=== PATIENT | male | born 1960 | race Caucasian/White ===

== ENCOUNTER 2021-06-04 17:37 | Emergency (ER) | payer OTHER ==
[2021-06-04 17:45] VITALS: BMI 28.3
[2021-06-04] MEDS ORDERED: BACITRACIN 0.9 GM PACKET ONE (19:45)
[2021-06-04] MEDS ORDERED: FOLIC ACID INJECTION - 1 MG, THIAMINE HCL 100 MG, MULTIVIT INJECTION ADULT 10 ML in SOD... IVPB ONE (19:48)
[2021-06-04 20:54] LABS: BASO % 0.3 % (0-2.0); EOS % 0.8 % (0-4.5); HEMOGLOBIN 13.8 GM/dL (11.7-16.9); LYMPH % 18.9 % (8-40); MCH 33.3 pg (25.7-33.7); MCHC 35.2 g/dl (32.0-35.9); MEAN CELL VOLUME 94.6 fl (80-96); MEAN PLT VOLUME 8.5 fl (7.5-11.1); MONO % 2.9 % (3.8-10.2); NEUT % 77.1 % (42.8-82.8); PLATELET COUNT 156 10^3/uL (134-434); RBC 4.13 M/mm3 (4.00-5.60); RDW 12.4 % (11.9-15.9); WHITE BLOOD COUNT 8.4 K/mm3 (4.0-10.0)
[2021-06-04 21:16] LABS: ALBUMIN 3.5 g/dl (3.4-5.0); CALCIUM 8.3 mg/dL (8.5-10.1)
[2021-06-04 21:17] LABS: BLOOD UREA NITROGEN 13.6 mg/dL (7-18); MAGNESIUM 2.1 mg/dL (1.8-2.4)
[2021-06-04 21:20] LABS: CREATININE 1.2 mg/dL (0.55-1.3); PHOSPHOROUS 3.9 mg/dL (2.5-4.9)
[2021-06-04 21:21] LABS: BILIRUBIN,TOTAL 0.2 mg/dL (0.2-1); TOT PROT 6.7 g/dl (6.4-8.2)
[2021-06-04] MEDS ORDERED: SODIUM CHLORIDE 0.9% 500 ML INFUS.BAG IV ONE (21:26)
[2021-06-05] MEDS ORDERED: LISINOPRIL 20 MG TABLET PO ONE (06:16)
[2021-06-05] MEDS ORDERED: LISINOPRIL 20 MG TABLET ONE (06:28)
[2021-06-05 08:20] VITALS: BP 167/92; PULSE 82; TEMP 98.1
== END 2021-06-05 08:15 | disposition home or self-care (01) ==
LOC: JER 17:37
PROC: 3E033GC Introduction of Other Therapeutic Substance into Peripheral Vein, Percutaneous Approach (ICD-10-PCS; principal; 2021-06-04)
DX: F10.10 Alcohol abuse, uncomplicated (principal)
CPT/HCPCS: 36415; 70450-TC; 72125-TC; 80053; 83735; 84100; 85025; 99285-25

== ENCOUNTER 2021-06-05 09:40 | Inpatient (IN) | payer OTHER ==
[2021-06-05 11:22] VITALS: BMI 28.3
[2021-06-05] MEDS ORDERED: METHOCARBAMOL 500 MG TABLET PO PRN (11:42)
[2021-06-05] MEDS ORDERED: diazePAM 5 MG TABLET PO PRN (11:42)
[2021-06-05] MEDS ORDERED: MAGNESIUM CITRATE 300 ML BOTTLE PO PRN (11:42)
[2021-06-05] MEDS ORDERED: ONDANSETRON *ODT* 4 MG TABLET SL PRN (11:42)
[2021-06-05] MEDS ORDERED: IBUPROFEN 400 MG TABLET (FP) PO PRN (11:42)
[2021-06-05] MEDS ORDERED: MAG HYDROX/AL HYDROX/SIMETH 30 ML UNIT-DOSE CUP PO PRN (11:42)
[2021-06-05] MEDS ORDERED: MAGNESIUM HYDROX 2400MG/30ML ORAL SUSPENSION 30 ML CUP PO PRN (11:42)
[2021-06-05] MEDS ORDERED: MENTHOL/PHENOL 1 EACH UD MM PRN (11:42)
[2021-06-05] MEDS ORDERED: BISMUTH SUBSALICYLATE 524 MG/30 ML PO PRN (11:42)
[2021-06-05] MEDS ORDERED: ACETAMINOPHEN 325 MG TABLET (FP) PO PRN ×2 (11:42)
[2021-06-05] MEDS ORDERED: INSULIN (NOVOLOG) ASPART 100 UNITS/ML 10ML VIAL SQ ONE (13:52)
[2021-06-05] MEDS: LISINOPRIL 20 MG TABLET PO SCH (15:21)
[2021-06-05] MEDS: hydrOXYzine PAMOATE 25 MG CAPSULE (FP) PO SCH ×3 (15:21→22:02)
[2021-06-05] MEDS ORDERED: INSULIN SLIDING SCALE (NOVOLOG) 1 VIAL SQ ONE (18:09)
[2021-06-05] MEDS: metFORMIN HCL 500 MG TABLET (FP) PO SCH (18:51)
[2021-06-05] MEDS: GEMFIBROZIL 600 MG TABLET (FP) PO SCH (18:51)
[2021-06-05] MEDS: diazePAM 5 MG TABLET PO SCH ×2 (18:52→22:03)
[2021-06-05] MEDS: INSULIN (NOVOLOG) ASPART 100 UNITS/ML 10ML VIAL SQ SCH ×2 (19:02→22:05)
[2021-06-05] MEDS: risperiDONE 0.5 MG TABLET PO SCH (22:02)
[2021-06-05] MEDS: QUEtiapine FUMARATE 300 MG TABLET PO SCH (22:02)
[2021-06-05] MEDS: DONEPEZIL HCL 5 MG TABLET (FP) PO SCH (22:02)
[2021-06-05] MEDS: THIAMINE HCL 100 MG TABLET (FP) PO SCH (22:02)
[2021-06-05] MEDS: traZODone HCL 100 MG TABLET (FP) PO SCH (22:02)
[2021-06-05] MEDS: MELATONIN 5 MG TABLETS PO SCH (22:02)
[2021-06-06] MEDS: hydrOXYzine PAMOATE 25 MG CAPSULE (FP) PO SCH ×5 (05:39→22:08)
[2021-06-06] MEDS: diazePAM 5 MG TABLET PO SCH ×4 (05:42→22:06)
[2021-06-06] MEDS: metFORMIN HCL 500 MG TABLET (FP) PO SCH ×2 (07:26→17:12)
[2021-06-06] MEDS: GEMFIBROZIL 600 MG TABLET (FP) PO SCH ×2 (07:27→17:13)
[2021-06-06] MEDS: INSULIN (NOVOLOG) ASPART 100 UNITS/ML 10ML VIAL SQ SCH ×4 (07:27→22:08)
[2021-06-06] MEDS: glipiZIDE 5 MG TABLET (FP) PO SCH (07:27)
[2021-06-06] MEDS: LISINOPRIL 20 MG TABLET PO SCH (10:12)
[2021-06-06] MEDS: ESCITALOPRAM OXALATE 20 MG TABLET PO SCH (10:12)
[2021-06-06] MEDS: PRENATAL VITAMINS W/ FOLIC ACID TABLET (FP) PO SCH (10:13)
[2021-06-06 11:13] LABS: HEMATOCRIT 40.3 % (35.4-49); HEMOGLOBIN 14.2 GM/dL (11.7-16.9); MCHC 35.2 g/dl (32.0-35.9); MEAN CELL VOLUME 93.9 fl (80-96); MEAN PLT VOLUME 8.9 fl (7.5-11.1); PLATELET COUNT 136 10^3/uL (134-434); RBC 4.29 M/mm3 (4.00-5.60); RDW 12.5 % (11.9-15.9); WHITE BLOOD COUNT 4.3 K/mm3 (4.0-10.0)
[2021-06-06 11:33] LABS: ALBUMIN 3.3 g/dl (3.4-5.0); BLOOD UREA NITROGEN 12.3 mg/dL (7-18); CALCIUM 8.5 mg/dL (8.5-10.1)
[2021-06-06 11:36] LABS: CREATININE 0.8 mg/dL (0.55-1.3)
[2021-06-06 11:38] LABS: BILIRUBIN,TOTAL 0.6 mg/dL (0.2-1); TOT PROT 6.6 g/dl (6.4-8.2)
[2021-06-06] MEDS ORDERED: INSULIN SLIDING SCALE (NOVOLOG) 1 VIAL SQ ONE ×3 (11:59→21:44)
[2021-06-06] MEDS: traZODone HCL 100 MG TABLET (FP) PO SCH (22:05)
[2021-06-06] MEDS: QUEtiapine FUMARATE 300 MG TABLET PO SCH (22:05)
[2021-06-06] MEDS: DONEPEZIL HCL 5 MG TABLET (FP) PO SCH (22:05)
[2021-06-06] MEDS: THIAMINE HCL 100 MG TABLET (FP) PO SCH (22:05)
[2021-06-06] MEDS: risperiDONE 0.5 MG TABLET PO SCH (22:05)
[2021-06-06] MEDS: MELATONIN 5 MG TABLETS PO SCH (22:05)
[2021-06-07] MEDS: diazePAM 5 MG TABLET PO SCH ×3 (06:09→22:13)
[2021-06-07] MEDS: glipiZIDE 5 MG TABLET (FP) PO SCH (06:10)
[2021-06-07] MEDS: GEMFIBROZIL 600 MG TABLET (FP) PO SCH ×2 (06:10→17:39)
[2021-06-07] MEDS: metFORMIN HCL 500 MG TABLET (FP) PO SCH ×2 (06:10→17:39)
[2021-06-07] MEDS: hydrOXYzine PAMOATE 25 MG CAPSULE (FP) PO SCH ×5 (06:10→22:17)
[2021-06-07] MEDS ORDERED: INSULIN SLIDING SCALE (NOVOLOG) 1 VIAL SQ ONE ×4 (06:48→23:32)
[2021-06-07] MEDS: INSULIN (NOVOLOG) ASPART 100 UNITS/ML 10ML VIAL SQ SCH ×4 (06:48→22:16)
[2021-06-07] MEDS: PRENATAL VITAMINS W/ FOLIC ACID TABLET (FP) PO SCH (11:19)
[2021-06-07] MEDS: ESCITALOPRAM OXALATE 20 MG TABLET PO SCH (11:19)
[2021-06-07] MEDS: LISINOPRIL 20 MG TABLET PO SCH (11:21)
[2021-06-07] MEDS: traZODone HCL 100 MG TABLET (FP) PO SCH (22:12)
[2021-06-07] MEDS: DONEPEZIL HCL 5 MG TABLET (FP) PO SCH (22:12)
[2021-06-07] MEDS: risperiDONE 0.5 MG TABLET PO SCH (22:12)
[2021-06-07] MEDS: MELATONIN 5 MG TABLETS PO SCH (22:13)
[2021-06-07] MEDS: QUEtiapine FUMARATE 300 MG TABLET PO SCH (22:13)
[2021-06-07] MEDS: THIAMINE HCL 100 MG TABLET (FP) PO SCH (22:14)
[2021-06-08] MEDS ORDERED: INSULIN SLIDING SCALE (NOVOLOG) 1 VIAL SQ ONE ×3 (03:23→11:20)
[2021-06-08] MEDS: metFORMIN HCL 500 MG TABLET (FP) PO SCH ×2 (06:24→17:39)
[2021-06-08] MEDS: GEMFIBROZIL 600 MG TABLET (FP) PO SCH ×2 (06:24→17:39)
[2021-06-08] MEDS: hydrOXYzine PAMOATE 25 MG CAPSULE (FP) PO SCH ×5 (06:24→22:06)
[2021-06-08] MEDS: glipiZIDE 5 MG TABLET (FP) PO SCH (06:24)
[2021-06-08] MEDS: diazePAM 5 MG TABLET PO SCH ×2 (06:24→17:50)
[2021-06-08] MEDS: INSULIN (NOVOLOG) ASPART 100 UNITS/ML 10ML VIAL SQ SCH ×4 (06:27→23:26)
[2021-06-08] MEDS: LISINOPRIL 20 MG TABLET PO SCH (10:11)
[2021-06-08] MEDS: PRENATAL VITAMINS W/ FOLIC ACID TABLET (FP) PO SCH (10:11)
[2021-06-08] MEDS: ESCITALOPRAM OXALATE 20 MG TABLET PO SCH (10:12)
[2021-06-08] MEDS ORDERED: NICOTINE 10 MG CARTRIDGE (INHALER) IH PRN (13:26)
[2021-06-08] MEDS: traZODone HCL 100 MG TABLET (FP) PO SCH (22:06)
[2021-06-08] MEDS: THIAMINE HCL 100 MG TABLET (FP) PO SCH (22:06)
[2021-06-08] MEDS: MELATONIN 5 MG TABLETS PO SCH (22:06)
[2021-06-08] MEDS: QUEtiapine FUMARATE 300 MG TABLET PO SCH (22:06)
[2021-06-08] MEDS: risperiDONE 0.5 MG TABLET PO SCH (22:07)
[2021-06-08] MEDS: DONEPEZIL HCL 5 MG TABLET (FP) PO SCH (23:26)
[2021-06-09] MEDS ORDERED: diazePAM 5 MG TABLET PO ONE (06:00)
[2021-06-09] MEDS: GEMFIBROZIL 600 MG TABLET (FP) PO SCH (06:58)
[2021-06-09] MEDS: glipiZIDE 5 MG TABLET (FP) PO SCH (06:58)
[2021-06-09] MEDS: hydrOXYzine PAMOATE 25 MG CAPSULE (FP) PO SCH ×3 (06:58→14:24)
[2021-06-09] MEDS: metFORMIN HCL 500 MG TABLET (FP) PO SCH (06:58)
[2021-06-09] MEDS: INSULIN (NOVOLOG) ASPART 100 UNITS/ML 10ML VIAL SQ SCH ×2 (07:04→12:10)
[2021-06-09] MEDS ORDERED: INSULIN SLIDING SCALE (NOVOLOG) 1 VIAL SQ ONE ×2 (07:07→12:10)
[2021-06-09 08:21] VITALS: TEMP 96.9
[2021-06-09 09:34] VITALS: BP 115/74; PULSE 93
[2021-06-09] MEDS: LISINOPRIL 20 MG TABLET PO SCH (10:32)
[2021-06-09] MEDS: ESCITALOPRAM OXALATE 20 MG TABLET PO SCH (10:32)
[2021-06-09] MEDS: PRENATAL VITAMINS W/ FOLIC ACID TABLET (FP) PO SCH (10:32)
== END 2021-06-09 15:25 | disposition other institution (70) | DRG 897 ==
LOC: YASAS 09:40 → Y3N 14:33
PROVIDERS: ADMIT Allergy & Immunology; ATTEND Allergy & Immunology
PROC: HZ2ZZZZ Detoxification Services for Substance Abuse Treatment (ICD-10-PCS; principal; 2021-06-05)
DX: F10.230 Alcohol dependence with withdrawal, uncomplicated (principal); F39 Unspecified mood [affective] disorder; F41.8 Other specified anxiety disorders; F32.9 Major depressive disorder, single episode, unspecified; F03.90 Unspecified dementia, unspecified severity, without behavioral disturbance, psychotic disturbance, mood disturbance, and anxiety; I10 Essential (primary) hypertension; E78.5 Hyperlipidemia, unspecified; E11.9 Type 2 diabetes mellitus without complications; Z79.84 Long term (current) use of oral hypoglycemic drugs; Z56.0 Unemployment, unspecified; Z59.0 Homelessness
CPT/HCPCS: 36415; 80053; 82962; 85027; 86780; C9803; U0003; U0005

== ENCOUNTER 2021-06-09 15:28 | Inpatient (IN) | payer OTHER ==
[2021-06-09] MEDS ORDERED: MAGNESIUM HYDROX 2400MG/30ML ORAL SUSPENSION 30 ML CUP PO PRN (19:45)
[2021-06-09] MEDS ORDERED: ACETAMINOPHEN 325 MG TABLET (FP) PO PRN (19:45)
[2021-06-09] MEDS ORDERED: P-EPHED 60MG/TRIPROLIDI 2.5MG TABLET PO PRN (19:45)
[2021-06-09] MEDS ORDERED: IBUPROFEN 400 MG TABLET (FP) PO PRN (19:45)
[2021-06-09] MEDS ORDERED: NICOTINE POLACRILEX 2 MG GUM BUC PRN (19:45)
[2021-06-09] MEDS ORDERED: MENTHOL/PHENOL 1 EACH UD MM PRN (19:45)
[2021-06-09] MEDS ORDERED: LOPERAMIDE HCL 2 MG CAPSULE PO PRN (19:45)
[2021-06-09] MEDS ORDERED: MAG HYDROX/AL HYDROX/SIMETH 30 ML UNIT-DOSE CUP PO PRN (19:45)
[2021-06-09] MEDS ORDERED: guaiFENesin 200 MG/10 ML 10 ML UNIT-DOSE CUPS PO PRN (19:45)
[2021-06-09] MEDS ORDERED: MAGNESIUM CITRATE 300 ML BOTTLE PO PRN (19:45)
[2021-06-09] MEDS ORDERED: NICOTINE 10 MG CARTRIDGE (INHALER) IH PRN (19:45)
[2021-06-09] MEDS: hydrOXYzine PAMOATE 25 MG CAPSULE (FP) PO SCH (21:55)
[2021-06-09] MEDS ORDERED: MELATONIN 5 MG TABLETS PO SCH (22:00)
[2021-06-09] MEDS ORDERED: THIAMINE HCL 100 MG TABLET (FP) PO SCH (22:00)
[2021-06-09] MEDS ORDERED: QUEtiapine FUMARATE 300 MG TABLET PO SCH (22:00)
[2021-06-09] MEDS ORDERED: risperiDONE 0.5 MG TABLET PO SCH (22:00)
[2021-06-09] MEDS ORDERED: traZODone HCL 100 MG TABLET (FP) PO SCH (22:00)
[2021-06-09] MEDS ORDERED: METOPROLOL TARTRATE 25 MG TABLET (FP) PO SCH (22:00)
[2021-06-09 23:26] VITALS: TEMP 97.1
[2021-06-10] MEDS: metFORMIN HCL 500 MG TABLET (FP) PO SCH ×2 (06:34→16:52)
[2021-06-10] MEDS: GEMFIBROZIL 600 MG TABLET (FP) PO SCH ×2 (06:34→16:52)
[2021-06-10 06:35] VITALS: BP 136/79; PULSE 72
[2021-06-10] MEDS: hydrOXYzine PAMOATE 25 MG CAPSULE (FP) PO SCH ×4 (06:42→18:43)
[2021-06-10] MEDS ORDERED: glipiZIDE 5 MG TABLET (FP) PO SCH (07:00)
[2021-06-10] MEDS ORDERED: PRENATAL VITAMINS W/ FOLIC ACID TABLET (FP) PO SCH (10:00)
[2021-06-10] MEDS ORDERED: SOLIFENACIN SUCCINATE 5 MG TAB PO SCH (10:00)
[2021-06-10] MEDS ORDERED: NICOTINE 7 MG/24 HOURS TOPICAL PATCH TD SCH (10:00)
[2021-06-10] MEDS ORDERED: LISINOPRIL 20 MG TABLET PO SCH (10:00)
[2021-06-10] MEDS ORDERED: PT OWN MED DRAWER 7, Y5N ONE ×2 (15:53→16:52)
== END 2021-06-10 18:38 | disposition left against medical advice (07) | DRG 894 ==
LOC: YASAS 15:28 → Y5N 15:29
PROVIDERS: ADMIT Allergy & Immunology; ATTEND Allergy & Immunology
PROC: HZ42ZZZ Group Counseling for Substance Abuse Treatment, Cognitive-Behavioral (ICD-10-PCS; principal; 2021-06-09)
DX: F10.20 Alcohol dependence, uncomplicated (principal); F41.9 Anxiety disorder, unspecified; F32.9 Major depressive disorder, single episode, unspecified; F03.90 Unspecified dementia, unspecified severity, without behavioral disturbance, psychotic disturbance, mood disturbance, and anxiety; E78.5 Hyperlipidemia, unspecified; I10 Essential (primary) hypertension; E11.9 Type 2 diabetes mellitus without complications; Z79.84 Long term (current) use of oral hypoglycemic drugs
CPT/HCPCS: 82962

== ENCOUNTER 2021-11-01 12:00 | Emergency (ER) | payer OTHER ==
[2021-11-01 12:14] VITALS: TEMP 99.1; BMI 30.2
[2021-11-01] MEDS ORDERED: METOPROLOL TARTRATE 25 MG TABLET (FP) PO ONE (13:04)
[2021-11-01] MEDS ORDERED: LISINOPRIL 20 MG TABLET PO ONE (13:04)
[2021-11-01] MEDS ORDERED: ACETAMINOPHEN 1000 MG/100 ML BAG IVPB ONE (13:05)
[2021-11-01] MEDS ORDERED: LISINOPRIL 20 MG TABLET ONE (13:45)
[2021-11-01] MEDS ORDERED: ACETAMINOPHEN INJECTION 100 ML IVPB ONE (13:45)
[2021-11-01] MEDS ORDERED: METOPROLOL TARTRATE 25 MG TABLET (FP) ONE (13:45)
[2021-11-01 14:28] LABS: BASO % 0.8 % (0-2.0); EOS % 1.3 % (0-4.5); HEMATOCRIT 45.8 % (35.4-49); HEMOGLOBIN 15.7 GM/dL (11.7-16.9); MCH 31.2 pg (25.7-33.7); MCHC 34.2 g/dl (32.0-35.9); MEAN CELL VOLUME 91.2 fl (80-96); MEAN PLT VOLUME 8.2 fl (7.5-11.1); MONO % 8.5 % (3.8-10.2); NEUT % 67.4 % (42.8-82.8); PLATELET COUNT 240 10^3/uL (134-434); RBC 5.02 M/mm3 (4.00-5.60); RDW 12.4 % (11.9-15.9); WHITE BLOOD COUNT 8.5 K/mm3 (4.0-10.0)
[2021-11-01 14:59] LABS: CALCIUM 9.4 mg/dL (8.5-10.1)
[2021-11-01 15:00] LABS: ALBUMIN 4.5 g/dl (3.4-5.0); MAGNESIUM 2.6 mg/dL (1.8-2.4)
[2021-11-01 15:03] LABS: CREATININE 0.9 mg/dL (0.55-1.3); PHOSPHOROUS 3.5 mg/dL (2.5-4.9)
[2021-11-01 15:04] LABS: BILIRUBIN,TOTAL 1.1 mg/dL (0.2-1)
[2021-11-01 15:05] LABS: TOT PROT 8.7 g/dl (6.4-8.2)
[2021-11-01 17:28] VITALS: BP 123/81; PULSE 83
== END 2021-11-01 17:46 | disposition home or self-care (01) ==
LOC: JER 12:00
PROC: 3E0333Z Introduction of Anti-inflammatory into Peripheral Vein, Percutaneous Approach (ICD-10-PCS; principal; 2021-11-01)
DX: F10.10 Alcohol abuse, uncomplicated (principal)
CPT/HCPCS: 36415; 70450-TC; 80053; 83735; 84100; 85025; 93005; 93010; 99285-25; C9803; J0131; U0003; U0005

== ENCOUNTER 2021-11-01 18:23 | Inpatient (IN) | payer OTHER ==
[2021-11-01] MEDS ORDERED: IBUPROFEN 400 MG TABLET (FP) PO PRN (23:29)
[2021-11-01] MEDS ORDERED: MENTHOL/PHENOL 1 EACH UD MM PRN (23:29)
[2021-11-01] MEDS ORDERED: MAGNESIUM CITRATE 300 ML BOTTLE PO PRN (23:29)
[2021-11-01] MEDS ORDERED: ONDANSETRON *ODT* 4 MG TABLET SL PRN (23:29)
[2021-11-01] MEDS ORDERED: MAG HYDROX/AL HYDROX/SIMETH 30 ML UNIT-DOSE CUP PO PRN (23:29)
[2021-11-01] MEDS ORDERED: METHOCARBAMOL 500 MG TABLET PO PRN (23:29)
[2021-11-01] MEDS ORDERED: BISMUTH SUBSALICYLATE 524 MG/30 ML PO PRN (23:29)
[2021-11-01] MEDS ORDERED: ACETAMINOPHEN 325 MG TABLET (FP) PO PRN ×2 (23:29)
[2021-11-01] MEDS ORDERED: MAGNESIUM HYDROX 2400MG/30ML ORAL SUSPENSION 30 ML CUP PO PRN (23:29)
[2021-11-01] MEDS ORDERED: NICOTINE 10 MG CARTRIDGE (INHALER) IH PRN (23:29)
[2021-11-01 23:44] VITALS: BMI 28.3
[2021-11-02] MEDS ORDERED: hydrOXYzine PAMOATE 25 MG CAPSULE (FP) PO SCH (06:00)
[2021-11-02] MEDS: PRENATAL VITAMINS W/ FOLIC ACID TABLET (FP) PO SCH (10:34)
[2021-11-02] MEDS: ESCITALOPRAM OXALATE 20 MG TABLET PO SCH (10:36)
[2021-11-02 11:25] LABS: HEMATOCRIT 42.8 % (35.4-49); HEMOGLOBIN 14.3 GM/dL (11.7-16.9); MCH 31.1 pg (25.7-33.7); MCHC 33.5 g/dl (32.0-35.9); MEAN CELL VOLUME 92.9 fl (80-96); MEAN PLT VOLUME 8.3 fl (7.5-11.1); PLATELET COUNT 181 10^3/uL (134-434); RDW 12.7 % (11.9-15.9); WHITE BLOOD COUNT 5.1 K/mm3 (4.0-10.0)
[2021-11-02 11:33] LABS: ALBUMIN 3.9 g/dl (3.4-5.0); CALCIUM 8.8 mg/dL (8.5-10.1)
[2021-11-02 11:34] LABS: BLOOD UREA NITROGEN 26.8 mg/dL (7-18)
[2021-11-02 11:36] LABS: CREATININE 1.5 mg/dL (0.55-1.3)
[2021-11-02 11:38] LABS: BILIRUBIN,TOTAL 0.6 mg/dL (0.2-1); TOT PROT 7.4 g/dl (6.4-8.2)
[2021-11-02] MEDS ORDERED: glipiZIDE 5 MG TABLET (FP) PO SCH (16:30)
[2021-11-02] MEDS: INSULIN SLIDING SCALE (NOVOLOG) 1 VIAL SQ SCH (17:43)
[2021-11-02] MEDS: DONEPEZIL HCL 5 MG TABLET (FP) PO SCH (23:22)
[2021-11-02] MEDS: MELATONIN 5 MG TABLETS PO SCH (23:23)
[2021-11-02] MEDS: risperiDONE 0.5 MG TABLET PO SCH (23:23)
[2021-11-02] MEDS: THIAMINE HCL 100 MG TABLET (FP) PO SCH (23:23)
[2021-11-02] MEDS: QUEtiapine FUMARATE 300 MG TABLET PO SCH (23:23)
[2021-11-02] MEDS: traZODone HCL 100 MG TABLET (FP) PO SCH (23:23)
[2021-11-03] MEDS: INSULIN SLIDING SCALE (NOVOLOG) 1 VIAL SQ SCH ×3 (07:03→16:53)
[2021-11-03] MEDS ORDERED: chlordiazePOXIDE HCL 25 MG CAPSULE PO PRN (09:23)
[2021-11-03] MEDS: PRENATAL VITAMINS W/ FOLIC ACID TABLET (FP) PO SCH (10:21)
[2021-11-03] MEDS: ESCITALOPRAM OXALATE 20 MG TABLET PO SCH (10:21)
[2021-11-03] MEDS: chlordiazePOXIDE HCL 25 MG CAPSULE PO SCH ×3 (10:22→22:00)
[2021-11-03] MEDS: MELATONIN 5 MG TABLETS PO SCH (22:00)
[2021-11-03] MEDS: DONEPEZIL HCL 5 MG TABLET (FP) PO SCH (22:00)
[2021-11-03] MEDS: QUEtiapine FUMARATE 300 MG TABLET PO SCH (22:00)
[2021-11-03] MEDS: THIAMINE HCL 100 MG TABLET (FP) PO SCH (22:00)
[2021-11-03] MEDS: traZODone HCL 100 MG TABLET (FP) PO SCH (22:00)
[2021-11-03] MEDS: risperiDONE 0.5 MG TABLET PO SCH (22:00)
[2021-11-04] MEDS: chlordiazePOXIDE HCL 25 MG CAPSULE PO SCH ×4 (05:15→22:12)
[2021-11-04] MEDS: INSULIN SLIDING SCALE (NOVOLOG) 1 VIAL SQ SCH ×3 (07:38→18:21)
[2021-11-04] MEDS: PRENATAL VITAMINS W/ FOLIC ACID TABLET (FP) PO SCH (10:26)
[2021-11-04] MEDS: ESCITALOPRAM OXALATE 20 MG TABLET PO SCH (10:26)
[2021-11-04 13:32] LABS: BLOOD UREA NITROGEN 17.8 mg/dL (7-18); CALCIUM 8.9 mg/dL (8.5-10.1)
[2021-11-04 13:35] LABS: CREATININE 0.9 mg/dL (0.55-1.3)
[2021-11-04] MEDS: THIAMINE HCL 100 MG TABLET (FP) PO SCH (22:13)
[2021-11-04] MEDS: traZODone HCL 100 MG TABLET (FP) PO SCH (22:13)
[2021-11-04] MEDS: risperiDONE 0.5 MG TABLET PO SCH (22:13)
[2021-11-04] MEDS: DONEPEZIL HCL 5 MG TABLET (FP) PO SCH (22:13)
[2021-11-04] MEDS: QUEtiapine FUMARATE 300 MG TABLET PO SCH (22:13)
[2021-11-04] MEDS: MELATONIN 5 MG TABLETS PO SCH (22:14)
[2021-11-05] MEDS: chlordiazePOXIDE HCL 25 MG CAPSULE PO SCH ×4 (06:02→22:25)
[2021-11-05] MEDS: INSULIN SLIDING SCALE (NOVOLOG) 1 VIAL SQ SCH ×3 (07:45→17:31)
[2021-11-05] MEDS: ESCITALOPRAM OXALATE 20 MG TABLET PO SCH (10:17)
[2021-11-05] MEDS: PRENATAL VITAMINS W/ FOLIC ACID TABLET (FP) PO SCH (10:17)
[2021-11-05] MEDS: MELATONIN 5 MG TABLETS PO SCH (21:42)
[2021-11-05] MEDS: traZODone HCL 100 MG TABLET (FP) PO SCH (21:43)
[2021-11-05] MEDS: THIAMINE HCL 100 MG TABLET (FP) PO SCH (21:43)
[2021-11-05] MEDS: DONEPEZIL HCL 5 MG TABLET (FP) PO SCH (21:43)
[2021-11-05] MEDS: QUEtiapine FUMARATE 300 MG TABLET PO SCH (21:43)
[2021-11-05] MEDS: risperiDONE 0.5 MG TABLET PO SCH (21:43)
[2021-11-06] MEDS ORDERED: chlordiazePOXIDE HCL 10 MG CAPSULE PO PRN
[2021-11-06] MEDS: chlordiazePOXIDE HCL 10 MG CAPSULE PO SCH ×2 (06:12→10:06)
[2021-11-06] MEDS: INSULIN SLIDING SCALE (NOVOLOG) 1 VIAL SQ SCH (07:35)
[2021-11-06 09:29] VITALS: BP 144/85; PULSE 68; TEMP 96.9
[2021-11-06] MEDS: PRENATAL VITAMINS W/ FOLIC ACID TABLET (FP) PO SCH (10:06)
[2021-11-06] MEDS: ESCITALOPRAM OXALATE 20 MG TABLET PO SCH (10:06)
[2021-11-06] MEDS ORDERED: GEMFIBROZIL 600 MG TABLET (FP) PO SCH (16:30)
[2021-11-06] MEDS ORDERED: metFORMIN HCL 500 MG TABLET (FP) PO SCH (16:30)
[2021-11-06] MEDS ORDERED: METOPROLOL TARTRATE 25 MG TABLET (FP) PO SCH (22:00)
[2021-11-07] MEDS ORDERED: chlordiazePOXIDE HCL 10 MG CAPSULE PO SCH (05:00)
[2021-11-07] MEDS ORDERED: glipiZIDE 5 MG TABLET (FP) PO SCH (07:00)
[2021-11-07] MEDS ORDERED: LISINOPRIL 20 MG TABLET PO SCH (10:00)
[2021-11-08] MEDS ORDERED: chlordiazePOXIDE HCL 10 MG CAPSULE PO ONE (05:00)
== END 2021-11-06 12:22 | disposition left against medical advice (07) | DRG 894 ==
LOC: YASAS 18:23 → UNDOADMIN 23:32 → Y3N 23:32
PROVIDERS: ADMIT Allergy & Immunology; ATTEND Allergy & Immunology
PROC: HZ2ZZZZ Detoxification Services for Substance Abuse Treatment (ICD-10-PCS; principal; 2021-11-01)
DX: F10.230 Alcohol dependence with withdrawal, uncomplicated (principal); F14.20 Cocaine dependence, uncomplicated; E87.1 Hypo-osmolality and hyponatremia; N17.9 Acute kidney failure, unspecified; F17.210 Nicotine dependence, cigarettes, uncomplicated; F20.9 Schizophrenia, unspecified; F39 Unspecified mood [affective] disorder; F03.90 Unspecified dementia, unspecified severity, without behavioral disturbance, psychotic disturbance, mood disturbance, and anxiety; I10 Essential (primary) hypertension; E11.65 Type 2 diabetes mellitus with hyperglycemia; Z79.84 Long term (current) use of oral hypoglycemic drugs; Z56.0 Unemployment, unspecified; Z59.00 Homelessness unspecified
CPT/HCPCS: 36415; 80048; 80053; 82962; 85027; 86780; C9803; U0003; U0005

== ENCOUNTER 2022-05-29 11:49 | Inpatient (IN) | payer OTHER ==
[2022-05-29] MEDS ORDERED: NICOTINE 10 MG CARTRIDGE (INHALER) IH PRN (13:12)
[2022-05-29] MEDS ORDERED: LOPERAMIDE HCL 2 MG CAPSULE PO PRN (13:12)
[2022-05-29] MEDS ORDERED: MAG HYDROX/AL HYDROX/SIMETH 30 ML UNIT-DOSE CUP PO PRN (13:12)
[2022-05-29] MEDS ORDERED: BISMUTH SUBSALICYLATE 262 MG/15 ML BTL PO PRN (13:12)
[2022-05-29] MEDS ORDERED: METHOCARBAMOL 500 MG TABLET PO PRN (13:12)
[2022-05-29] MEDS ORDERED: MAGNESIUM CITRATE 300 ML BOTTLE PO PRN (13:12)
[2022-05-29] MEDS ORDERED: ONDANSETRON *ODT* 4 MG TABLET SL PRN (13:12)
[2022-05-29] MEDS ORDERED: DICYCLOMINE HCL 10 MG CAPSULE PO PRN (13:12)
[2022-05-29] MEDS ORDERED: IBUPROFEN 400 MG TABLET (FP) PO PRN (13:12)
[2022-05-29] MEDS ORDERED: MAGNESIUM HYDROX 2400MG/30ML ORAL SUSPENSION 30 ML CUP PO PRN (13:12)
[2022-05-29] MEDS ORDERED: BENZOCAINE/MENTHOL (CHLORASEPTIC ) LOZENGE MM PRN (13:12)
[2022-05-29] MEDS ORDERED: IBUPROFEN 600 MG TABLET (FP) PO PRN (13:12)
[2022-05-29] MEDS ORDERED: ACETAMINOPHEN 325 MG TABLET (FP) PO PRN ×2 (13:12)
[2022-05-29 13:21] VITALS: BMI 27.5
[2022-05-29] MEDS: hydrOXYzine PAMOATE 25 MG CAPSULE (FP) PO SCH ×3 (14:49→22:22)
[2022-05-29] MEDS: LISINOPRIL 20 MG TABLET PO SCH (14:49)
[2022-05-29] MEDS ORDERED: INSULIN (NOVOLOG) ASPART 100 UNITS/ML 10ML VIAL ONE (17:39)
[2022-05-29] MEDS: metFORMIN HCL 500 MG TABLET (FP) PO SCH (17:51)
[2022-05-29] MEDS: INSULIN SLIDING SCALE (NOVOLOG) 1 VIAL SQ SCH (17:52)
[2022-05-29] MEDS: QUEtiapine FUMARATE 50 MG TABLET PO SCH (22:22)
[2022-05-29] MEDS: THIAMINE HCL 100 MG TABLET (FP) PO SCH (22:22)
[2022-05-29] MEDS: METOPROLOL TARTRATE 25 MG TABLET (FP) PO SCH (22:22)
[2022-05-29] MEDS: MELATONIN 5 MG TABLETS PO SCH (22:23)
[2022-05-29] MEDS: GEMFIBROZIL 600 MG TABLET (FP) PO SCH (22:25)
[2022-05-30] MEDS: hydrOXYzine PAMOATE 25 MG CAPSULE (FP) PO SCH ×5 (05:56→22:33)
[2022-05-30] MEDS: GEMFIBROZIL 600 MG TABLET (FP) PO SCH ×2 (06:19→16:36)
[2022-05-30] MEDS: metFORMIN HCL 500 MG TABLET (FP) PO SCH ×2 (06:19→16:36)
[2022-05-30] MEDS: INSULIN SLIDING SCALE (NOVOLOG) 1 VIAL SQ SCH ×2 (06:20→16:36)
[2022-05-30] MEDS: LISINOPRIL 20 MG TABLET PO SCH (10:40)
[2022-05-30] MEDS: ESCITALOPRAM OXALATE 10 MG TABLET PO SCH (10:40)
[2022-05-30] MEDS: PRENATAL VITAMINS W/ FOLIC ACID TABLET (FP) PO SCH (10:40)
[2022-05-30 14:00] LABS: HEMATOCRIT 40.8 % (35.4-49); HEMOGLOBIN 14.2 GM/dL (11.7-16.9); MCH 32.6 pg (25.7-33.7); MCHC 34.8 g/dl (32.0-35.9); MEAN CELL VOLUME 93.7 fl (80-96); MEAN PLT VOLUME 8.7 fl (7.5-11.1); PLATELET COUNT 176 10^3/uL (134-434); RBC 4.36 M/mm3 (4.00-5.60); RDW 13.2 % (11.9-15.9); WHITE BLOOD COUNT 4.4 K/mm3 (4.0-10.0)
[2022-05-30 14:09] LABS: CALCIUM 8.7 mg/dL (8.5-10.1)
[2022-05-30 14:10] LABS: ALBUMIN 3.1 g/dl (3.4-5.0); BLOOD UREA NITROGEN 9.4 mg/dL (7-18)
[2022-05-30 14:13] LABS: CREATININE 0.7 mg/dL (0.55-1.3)
[2022-05-30 14:14] LABS: BILIRUBIN,TOTAL 0.9 mg/dL (0.2-1); TOT PROT 6.2 g/dl (6.4-8.2)
[2022-05-30] MEDS ORDERED: INSULIN (NOVOLOG) ASPART 100 UNITS/ML 10ML VIAL ONE (16:27)
[2022-05-30] MEDS: QUEtiapine FUMARATE 50 MG TABLET PO SCH (22:32)
[2022-05-30] MEDS: METOPROLOL TARTRATE 25 MG TABLET (FP) PO SCH (22:32)
[2022-05-30] MEDS: MELATONIN 5 MG TABLETS PO SCH (22:33)
[2022-05-30] MEDS: THIAMINE HCL 100 MG TABLET (FP) PO SCH (22:33)
[2022-05-31] MEDS: hydrOXYzine PAMOATE 25 MG CAPSULE (FP) PO SCH ×2 (05:40→10:10)
[2022-05-31] MEDS: GEMFIBROZIL 600 MG TABLET (FP) PO SCH (06:12)
[2022-05-31] MEDS: metFORMIN HCL 500 MG TABLET (FP) PO SCH (06:12)
[2022-05-31] MEDS: INSULIN SLIDING SCALE (NOVOLOG) 1 VIAL SQ SCH (06:12)
[2022-05-31] MEDS ORDERED: glipiZIDE 5 MG TABLET (FP) PO SCH (10:00)
[2022-05-31] MEDS: ESCITALOPRAM OXALATE 10 MG TABLET PO SCH (10:09)
[2022-05-31] MEDS: PRENATAL VITAMINS W/ FOLIC ACID TABLET (FP) PO SCH (10:10)
[2022-05-31] MEDS: LISINOPRIL 20 MG TABLET PO SCH (10:10)
[2022-05-31 10:33] VITALS: BP 121/72; PULSE 69; RESP 17; TEMP 97.8
[2022-06-01] MEDS ORDERED: glipiZIDE 5 MG TABLET (FP) PO SCH (07:00)
== END 2022-05-31 12:20 | disposition home or self-care (01) | DRG 897 ==
LOC: YASAS 11:49 → SUATTDRO 11:49 → Y6N 14:05 → UNDOADMIN 14:05 → UNDODISIN 05-31 12:20
PROVIDERS: ADMIT Allergy & Immunology; ATTEND Surgery
PROC: HZ2ZZZZ Detoxification Services for Substance Abuse Treatment (ICD-10-PCS; principal; 2022-05-29)
DX: F10.230 Alcohol dependence with withdrawal, uncomplicated (principal); F19.282 Other psychoactive substance dependence with psychoactive substance-induced sleep disorder; F19.280 Other psychoactive substance dependence with psychoactive substance-induced anxiety disorder; F17.210 Nicotine dependence, cigarettes, uncomplicated; F03.90 Unspecified dementia, unspecified severity, without behavioral disturbance, psychotic disturbance, mood disturbance, and anxiety; F19.24 Other psychoactive substance dependence with psychoactive substance-induced mood disorder; F41.8 Other specified anxiety disorders; I10 Essential (primary) hypertension; E78.00 Pure hypercholesterolemia, unspecified; E11.9 Type 2 diabetes mellitus without complications; Z79.84 Long term (current) use of oral hypoglycemic drugs; N40.0 Benign prostatic hyperplasia without lower urinary tract symptoms
CPT/HCPCS: 36415; 80053; 82962; 85027; 86780; 87811

== ENCOUNTER 2022-06-02 10:18 | Inpatient (IN) | payer OTHER ==
[2022-06-02 11:49] VITALS: BMI 26.2
[2022-06-02] MEDS ORDERED: IBUPROFEN 400 MG TABLET (FP) PO PRN (12:21)
[2022-06-02] MEDS ORDERED: MAGNESIUM CITRATE 300 ML BOTTLE PO PRN (12:21)
[2022-06-02] MEDS ORDERED: ACETAMINOPHEN 325 MG TABLET (FP) PO PRN (12:21)
[2022-06-02] MEDS ORDERED: NICOTINE 10 MG CARTRIDGE (INHALER) IH PRN (12:21)
[2022-06-02] MEDS ORDERED: LOPERAMIDE HCL 2 MG CAPSULE PO PRN (12:21)
[2022-06-02] MEDS ORDERED: guaiFENesin 200 MG/10 ML 10 ML UNIT-DOSE CUPS PO PRN (12:21)
[2022-06-02] MEDS ORDERED: MAG HYDROX/AL HYDROX/SIMETH 30 ML UNIT-DOSE CUP PO PRN (12:21)
[2022-06-02] MEDS ORDERED: P-EPHED 60MG/TRIPROLIDI 2.5MG TABLET PO PRN (12:21)
[2022-06-02] MEDS ORDERED: MAGNESIUM HYDROX 2400MG/30ML ORAL SUSPENSION 30 ML CUP PO PRN (12:21)
[2022-06-02 16:39] LABS: HEMATOCRIT 45.9 % (35.4-49); HEMOGLOBIN 15.9 GM/dL (11.7-16.9); MCH 32.8 pg (25.7-33.7); MCHC 34.7 g/dl (32.0-35.9); MEAN CELL VOLUME 94.6 fl (80-96); MEAN PLT VOLUME 9.1 fl (7.5-11.1); PLATELET COUNT 187 10^3/uL (134-434); RBC 4.85 M/mm3 (4.00-5.60); RDW 13.3 % (11.9-15.9); WHITE BLOOD COUNT 5.5 K/mm3 (4.0-10.0)
[2022-06-02 16:47] LABS: BLOOD UREA NITROGEN 16.2 mg/dL (7-18); CALCIUM 8.9 mg/dL (8.5-10.1)
[2022-06-02] MEDS: metFORMIN HCL 500 MG TABLET (FP) PO SCH (16:47)
[2022-06-02 16:48] LABS: ALBUMIN 3.6 g/dl (3.4-5.0)
[2022-06-02] MEDS: NICOTINE 7 MG/24 HOURS TOPICAL PATCH TD SCH (16:50)
[2022-06-02] MEDS: PRENATAL VITAMINS W/ FOLIC ACID TABLET (FP) PO SCH (16:50)
[2022-06-02] MEDS: hydrOXYzine PAMOATE 25 MG CAPSULE (FP) PO SCH ×3 (16:50→21:16)
[2022-06-02 16:51] LABS: CREATININE 0.9 mg/dL (0.55-1.3)
[2022-06-02] MEDS: GEMFIBROZIL 600 MG TABLET (FP) PO SCH ×2 (16:52→21:29)
[2022-06-02 16:53] LABS: BILIRUBIN,TOTAL 0.6 mg/dL (0.2-1); TOT PROT 7.4 g/dl (6.4-8.2)
[2022-06-02 20:15] LABS: SYPHILIS W/ RPR CONF NON-REACTIVE (NONREACTIVE)
[2022-06-02] MEDS: MELATONIN 5 MG TABLETS PO SCH (21:16)
[2022-06-02] MEDS: THIAMINE HCL 100 MG TABLET (FP) PO SCH (21:16)
[2022-06-03] MEDS: hydrOXYzine PAMOATE 25 MG CAPSULE (FP) PO SCH ×5 (06:43→21:20)
[2022-06-03] MEDS: metFORMIN HCL 500 MG TABLET (FP) PO SCH ×2 (07:07→16:49)
[2022-06-03] MEDS: glipiZIDE 5 MG TABLET (FP) PO SCH (07:07)
[2022-06-03] MEDS: GEMFIBROZIL 600 MG TABLET (FP) PO SCH ×2 (07:07→16:49)
[2022-06-03] MEDS: NICOTINE 7 MG/24 HOURS TOPICAL PATCH TD SCH (09:32)
[2022-06-03] MEDS: PRENATAL VITAMINS W/ FOLIC ACID TABLET (FP) PO SCH (09:33)
[2022-06-03] MEDS: LISINOPRIL 20 MG TABLET PO SCH (09:33)
[2022-06-03] MEDS: metoPROLOL SUCCINATE 25 MG TAB.SR.24H (FP) PO SCH (09:33)
[2022-06-03] MEDS: ESCITALOPRAM OXALATE 10 MG TABLET PO SCH (10:56)
[2022-06-03 12:12] LABS: URINE APPEARANCE CLEAR; URINE BILIRUBIN NEGATIVE (NEGATIVE); URINE COLOR YELLOW; URINE GLUCOSE (UA) TRACE (NEGATIVE); URINE KETONE NEGATIVE (NEGATIVE); URINE LEUK ESTERASE NEGATIVE (NEGATIVE); URINE NITRITE NEGATIVE (NEGATIVE); URINE PROTEIN NEGATIVE (NEGATIVE); URINE UROBILINOGEN 0.2 mg/dL (0.2-1.0)
[2022-06-03] MEDS: MELATONIN 5 MG TABLETS PO SCH (21:20)
[2022-06-03] MEDS: THIAMINE HCL 100 MG TABLET (FP) PO SCH (21:20)
[2022-06-03] MEDS: QUEtiapine FUMARATE 50 MG TABLET PO SCH (21:21)
[2022-06-03] MEDS ORDERED: NICOTINE 7 MG/24 HOURS TOPICAL PATCH TD PRN (21:41)
[2022-06-03] MEDS: INSULIN SLIDING SCALE (NOVOLOG) 1 VIAL SQ SCH (22:04)
[2022-06-03] MEDS ORDERED: INSULIN (NOVOLOG) ASPART 100 UNITS/ML 10ML VIAL ONE (22:05)
[2022-06-04] MEDS: metFORMIN HCL 500 MG TABLET (FP) PO SCH ×2 (06:20→16:31)
[2022-06-04] MEDS: glipiZIDE 5 MG TABLET (FP) PO SCH (06:21)
[2022-06-04] MEDS: GEMFIBROZIL 600 MG TABLET (FP) PO SCH ×2 (06:22→16:32)
[2022-06-04] MEDS: INSULIN SLIDING SCALE (NOVOLOG) 1 VIAL SQ SCH ×4 (06:23→21:16)
[2022-06-04] MEDS: LISINOPRIL 20 MG TABLET PO SCH (09:53)
[2022-06-04] MEDS: PRENATAL VITAMINS W/ FOLIC ACID TABLET (FP) PO SCH (09:53)
[2022-06-04] MEDS: ESCITALOPRAM OXALATE 10 MG TABLET PO SCH (09:53)
[2022-06-04] MEDS: metoPROLOL SUCCINATE 25 MG TAB.SR.24H (FP) PO SCH (09:54)
[2022-06-04] MEDS: CARBAMIDE PEROXIDE 6.5% OTIC 15 ML BOTTLE AD SCH ×2 (10:22→21:14)
[2022-06-04] MEDS ORDERED: INSULIN (NOVOLOG) ASPART 100 UNITS/ML 10ML VIAL ONE ×2 (16:32→21:48)
[2022-06-04] MEDS: hydrOXYzine PAMOATE 25 MG CAPSULE (FP) PO PRN (21:13)
[2022-06-04] MEDS: THIAMINE HCL 100 MG TABLET (FP) PO SCH (21:13)
[2022-06-04] MEDS: MELATONIN 5 MG TABLETS PO SCH (21:13)
[2022-06-04] MEDS: QUEtiapine FUMARATE 50 MG TABLET PO SCH (21:13)
[2022-06-05] MEDS: glipiZIDE 5 MG TABLET (FP) PO SCH (06:19)
[2022-06-05] MEDS: metFORMIN HCL 500 MG TABLET (FP) PO SCH ×2 (06:19→17:12)
[2022-06-05] MEDS: GEMFIBROZIL 600 MG TABLET (FP) PO SCH ×2 (06:19→17:12)
[2022-06-05] MEDS: INSULIN SLIDING SCALE (NOVOLOG) 1 VIAL SQ SCH ×4 (06:20→21:15)
[2022-06-05] MEDS ORDERED: INSULIN (NOVOLOG) ASPART 100 UNITS/ML 10ML VIAL ONE ×2 (06:20→20:12)
[2022-06-05] MEDS: LISINOPRIL 20 MG TABLET PO SCH (09:41)
[2022-06-05] MEDS: CARBAMIDE PEROXIDE 6.5% OTIC 15 ML BOTTLE AD SCH ×2 (09:41→21:10)
[2022-06-05] MEDS: PRENATAL VITAMINS W/ FOLIC ACID TABLET (FP) PO SCH (09:42)
[2022-06-05] MEDS: metoPROLOL SUCCINATE 25 MG TAB.SR.24H (FP) PO SCH (09:42)
[2022-06-05] MEDS: ESCITALOPRAM OXALATE 10 MG TABLET PO SCH (09:42)
[2022-06-05] MEDS: QUEtiapine FUMARATE 50 MG TABLET PO SCH (21:09)
[2022-06-05] MEDS: hydrOXYzine PAMOATE 25 MG CAPSULE (FP) PO PRN (21:10)
[2022-06-05] MEDS: THIAMINE HCL 100 MG TABLET (FP) PO SCH (21:10)
[2022-06-05] MEDS: MELATONIN 5 MG TABLETS PO SCH (21:10)
[2022-06-06] MEDS: glipiZIDE 5 MG TABLET (FP) PO SCH (06:28)
[2022-06-06] MEDS: metFORMIN HCL 500 MG TABLET (FP) PO SCH ×2 (06:28→16:27)
[2022-06-06] MEDS: GEMFIBROZIL 600 MG TABLET (FP) PO SCH ×2 (06:28→16:27)
[2022-06-06] MEDS: INSULIN SLIDING SCALE (NOVOLOG) 1 VIAL SQ SCH ×4 (06:29→21:11)
[2022-06-06] MEDS: CARBAMIDE PEROXIDE 6.5% OTIC 15 ML BOTTLE AD SCH ×2 (09:43→21:11)
[2022-06-06] MEDS: ESCITALOPRAM OXALATE 10 MG TABLET PO SCH (09:44)
[2022-06-06] MEDS: metoPROLOL SUCCINATE 25 MG TAB.SR.24H (FP) PO SCH (09:44)
[2022-06-06] MEDS: PRENATAL VITAMINS W/ FOLIC ACID TABLET (FP) PO SCH (09:44)
[2022-06-06] MEDS: LISINOPRIL 20 MG TABLET PO SCH (09:44)
[2022-06-06] MEDS ORDERED: INSULIN (NOVOLOG) ASPART 100 UNITS/ML 10ML VIAL ONE ×3 (11:36→21:44)
[2022-06-06] MEDS: QUEtiapine FUMARATE 50 MG TABLET PO SCH (21:09)
[2022-06-06] MEDS: hydrOXYzine PAMOATE 25 MG CAPSULE (FP) PO PRN (21:09)
[2022-06-06] MEDS: MELATONIN 5 MG TABLETS PO SCH (21:09)
[2022-06-06] MEDS: THIAMINE HCL 100 MG TABLET (FP) PO SCH (21:09)
[2022-06-07] MEDS: glipiZIDE 5 MG TABLET (FP) PO SCH (06:18)
[2022-06-07] MEDS: GEMFIBROZIL 600 MG TABLET (FP) PO SCH ×2 (06:18→16:45)
[2022-06-07] MEDS: metFORMIN HCL 500 MG TABLET (FP) PO SCH ×2 (06:18→16:45)
[2022-06-07] MEDS: INSULIN SLIDING SCALE (NOVOLOG) 1 VIAL SQ SCH ×4 (06:19→21:08)
[2022-06-07] MEDS: CARBAMIDE PEROXIDE 6.5% OTIC 15 ML BOTTLE AD SCH ×2 (09:39→21:09)
[2022-06-07] MEDS: ESCITALOPRAM OXALATE 10 MG TABLET PO SCH (09:39)
[2022-06-07] MEDS: PRENATAL VITAMINS W/ FOLIC ACID TABLET (FP) PO SCH (09:39)
[2022-06-07] MEDS: LISINOPRIL 20 MG TABLET PO SCH (09:39)
[2022-06-07] MEDS: metoPROLOL SUCCINATE 25 MG TAB.SR.24H (FP) PO SCH (09:40)
[2022-06-07] MEDS ORDERED: INSULIN (NOVOLOG) ASPART 100 UNITS/ML 10ML VIAL ONE ×2 (11:00→16:42)
[2022-06-07] MEDS: THIAMINE HCL 100 MG TABLET (FP) PO SCH (21:06)
[2022-06-07] MEDS: MELATONIN 5 MG TABLETS PO SCH (21:06)
[2022-06-07] MEDS: QUEtiapine FUMARATE 50 MG TABLET PO SCH (21:06)
[2022-06-07] MEDS: hydrOXYzine PAMOATE 25 MG CAPSULE (FP) PO PRN (21:06)
[2022-06-08] MEDS ORDERED: INSULIN (NOVOLOG) ASPART 100 UNITS/ML 10ML VIAL ONE ×2 (06:16→17:32)
[2022-06-08] MEDS: metFORMIN HCL 500 MG TABLET (FP) PO SCH ×2 (06:16→17:10)
[2022-06-08] MEDS: glipiZIDE 5 MG TABLET (FP) PO SCH (06:16)
[2022-06-08] MEDS: GEMFIBROZIL 600 MG TABLET (FP) PO SCH ×2 (06:16→17:10)
[2022-06-08] MEDS: INSULIN SLIDING SCALE (NOVOLOG) 1 VIAL SQ SCH ×4 (06:16→21:30)
[2022-06-08 09:12] VITALS: TEMP 97.3
[2022-06-08] MEDS: PRENATAL VITAMINS W/ FOLIC ACID TABLET (FP) PO SCH (09:58)
[2022-06-08] MEDS: LISINOPRIL 20 MG TABLET PO SCH (09:58)
[2022-06-08] MEDS: ESCITALOPRAM OXALATE 10 MG TABLET PO SCH (09:58)
[2022-06-08] MEDS: metoPROLOL SUCCINATE 25 MG TAB.SR.24H (FP) PO SCH (09:59)
[2022-06-08] MEDS: CARBAMIDE PEROXIDE 6.5% OTIC 15 ML BOTTLE AD SCH ×2 (10:11→21:30)
[2022-06-08] MEDS: QUEtiapine FUMARATE 50 MG TABLET PO SCH (21:29)
[2022-06-08] MEDS: THIAMINE HCL 100 MG TABLET (FP) PO SCH (21:29)
[2022-06-08] MEDS: MELATONIN 5 MG TABLETS PO SCH (21:30)
[2022-06-09] MEDS: glipiZIDE 5 MG TABLET (FP) PO SCH (06:20)
[2022-06-09] MEDS: metFORMIN HCL 500 MG TABLET (FP) PO SCH (06:20)
[2022-06-09] MEDS: GEMFIBROZIL 600 MG TABLET (FP) PO SCH (06:20)
[2022-06-09] MEDS ORDERED: INSULIN (NOVOLOG) ASPART 100 UNITS/ML 10ML VIAL ONE (06:22)
[2022-06-09] MEDS: INSULIN SLIDING SCALE (NOVOLOG) 1 VIAL SQ SCH ×2 (06:22→11:10)
[2022-06-09 06:42] VITALS: RESP 18
[2022-06-09 09:39] VITALS: BP 114/73; PULSE 87
[2022-06-09] MEDS: metoPROLOL SUCCINATE 25 MG TAB.SR.24H (FP) PO SCH (10:17)
[2022-06-09] MEDS: CARBAMIDE PEROXIDE 6.5% OTIC 15 ML BOTTLE AD SCH (10:17)
[2022-06-09] MEDS: PRENATAL VITAMINS W/ FOLIC ACID TABLET (FP) PO SCH (10:18)
[2022-06-09] MEDS: LISINOPRIL 20 MG TABLET PO SCH (10:18)
[2022-06-09] MEDS: ESCITALOPRAM OXALATE 10 MG TABLET PO SCH (10:18)
== END 2022-06-09 11:37 | disposition home or self-care (01) | DRG 895 ==
LOC: YASAS 10:18 → Y3E 16:30
PROVIDERS: ADMIT Allergy & Immunology; ATTEND Surgery
PROC: HZ42ZZZ Group Counseling for Substance Abuse Treatment, Cognitive-Behavioral (ICD-10-PCS; principal; 2022-06-02)
DX: F10.20 Alcohol dependence, uncomplicated (principal); F17.210 Nicotine dependence, cigarettes, uncomplicated; F20.9 Schizophrenia, unspecified; F03.90 Unspecified dementia, unspecified severity, without behavioral disturbance, psychotic disturbance, mood disturbance, and anxiety; F41.8 Other specified anxiety disorders; E78.5 Hyperlipidemia, unspecified; I10 Essential (primary) hypertension; E11.9 Type 2 diabetes mellitus without complications; Z79.84 Long term (current) use of oral hypoglycemic drugs; N40.0 Benign prostatic hyperplasia without lower urinary tract symptoms; H61.22 Impacted cerumen, left ear; Z59.00 Homelessness unspecified; Z28.310 Unvaccinated for COVID-19; Z28.9 Immunization not carried out for unspecified reason
CPT/HCPCS: 36415; 80053; 81003; 82962; 85027; 86780; 86803; C9803-CS; U0003; U0005

== ENCOUNTER 2022-07-24 15:29 | Inpatient (IN) | payer OTHER ==
[2022-07-24 17:06] VITALS: BMI 28.3
[2022-07-24] MEDS ORDERED: MAGNESIUM HYDROX 2400MG/30ML ORAL SUSPENSION 30 ML CUP PO PRN (19:30)
[2022-07-24] MEDS ORDERED: METHOCARBAMOL 500 MG TABLET PO PRN (19:30)
[2022-07-24] MEDS ORDERED: IBUPROFEN 400 MG TABLET (FP) PO PRN (19:30)
[2022-07-24] MEDS ORDERED: ACETAMINOPHEN 325 MG TABLET (FP) PO PRN ×2 (19:30)
[2022-07-24] MEDS ORDERED: ONDANSETRON *ODT* 4 MG TABLET SL PRN (19:30)
[2022-07-24] MEDS ORDERED: LOPERAMIDE HCL 2 MG CAPSULE PO PRN (19:30)
[2022-07-24] MEDS ORDERED: IBUPROFEN 600 MG TABLET (FP) PO PRN (19:30)
[2022-07-24] MEDS ORDERED: MAG HYDROX/AL HYDROX/SIMETH 30 ML UNIT-DOSE CUP PO PRN (19:30)
[2022-07-24] MEDS ORDERED: BENZOCAINE/MENTHOL (CHLORASEPTIC ) LOZENGE MM PRN (19:30)
[2022-07-24] MEDS ORDERED: MAGNESIUM CITRATE 300 ML BOTTLE PO PRN (19:30)
[2022-07-24] MEDS ORDERED: DICYCLOMINE HCL 10 MG CAPSULE PO PRN (19:30)
[2022-07-24] MEDS ORDERED: NICOTINE 10 MG CARTRIDGE (INHALER) IH PRN (19:30)
[2022-07-24] MEDS ORDERED: BISMUTH SUBSALICYLATE 524 MG/30 ML PO PRN (19:30)
[2022-07-24] MEDS: hydrOXYzine PAMOATE 25 MG CAPSULE (FP) PO PRN (22:29)
[2022-07-24] MEDS: MELATONIN 5 MG TABLETS PO SCH (22:29)
[2022-07-24] MEDS: THIAMINE HCL 100 MG TABLET (FP) PO SCH (22:30)
[2022-07-25] MEDS: hydrOXYzine PAMOATE 25 MG CAPSULE (FP) PO PRN ×2 (10:11→17:52)
[2022-07-25] MEDS: PRENATAL VITAMINS W/ FOLIC ACID TABLET (FP) PO SCH (10:11)
[2022-07-25 12:13] LABS: HEMATOCRIT 41.5 % (35.4-49); MCH 31.8 pg (25.7-33.7); MCHC 33.8 g/dl (32.0-35.9); MEAN PLT VOLUME 9.3 fl (7.5-11.1); PLATELET COUNT 170 10^3/uL (134-434); RBC 4.41 M/mm3 (4.00-5.60); RDW 12.3 % (11.9-15.9); WHITE BLOOD COUNT 4.7 K/mm3 (4.0-10.0)
[2022-07-25 12:20] LABS: ALBUMIN 3.1 g/dl (3.4-5.0); BLOOD UREA NITROGEN 11.2 mg/dL (7-18); CALCIUM 8.8 mg/dL (8.5-10.1)
[2022-07-25 12:24] LABS: CREATININE 0.7 mg/dL (0.55-1.3)
[2022-07-25 12:25] LABS: BILIRUBIN,TOTAL 0.5 mg/dL (0.2-1); TOT PROT 6.4 g/dl (6.4-8.2)
[2022-07-25] MEDS ORDERED: QUEtiapine FUMARATE 300 MG TABLET PO SCH (22:00)
[2022-07-25] MEDS ORDERED: ATORVASTATIN CA 10 MG TABLET (FP) PO SCH (22:00)
[2022-07-25] MEDS: MELATONIN 5 MG TABLETS PO SCH (22:06)
[2022-07-25] MEDS: INSULIN SLIDING SCALE (NOVOLOG) 1 VIAL SQ SCH (22:06)
[2022-07-25] MEDS: THIAMINE HCL 100 MG TABLET (FP) PO SCH (22:07)
[2022-07-25] MEDS ORDERED: INSULIN (NOVOLOG) ASPART 100 UNITS/ML 10ML VIAL ONE (22:09)
[2022-07-26] MEDS ORDERED: glipiZIDE 5 MG TABLET (FP) PO SCH (07:00)
[2022-07-26] MEDS: INSULIN SLIDING SCALE (NOVOLOG) 1 VIAL SQ SCH (07:58)
[2022-07-26 09:38] VITALS: BP 134/76; PULSE 81; RESP 17; TEMP 98.1
[2022-07-26] MEDS ORDERED: LISINOPRIL 20 MG TABLET PO SCH (10:00)
[2022-07-26] MEDS ORDERED: metoPROLOL SUCCINATE 25 MG TAB.SR.24H (FP) PO SCH (10:00)
[2022-07-26] MEDS: PRENATAL VITAMINS W/ FOLIC ACID TABLET (FP) PO SCH (11:19)
[2022-07-26] MEDS ORDERED: metFORMIN HCL 500 MG TABLET (FP) PO SCH (16:30)
[2022-07-26] MEDS ORDERED: sitaGLIPtin PHOSPHATE 50 MG TABLET PO SCH (16:30)
[2022-07-26] MEDS ORDERED: DONEPEZIL HCL 10 MG TABLET (FP) PO SCH (22:00)
[2022-07-27] MEDS ORDERED: sitaGLIPtin PHOSPHATE 50 MG TABLET PO SCH (07:00)
== END 2022-07-26 10:21 | disposition home or self-care (01) | DRG 897 ==
LOC: YASAS 15:29 → Y6N 20:45
PROVIDERS: ADMIT Allergy & Immunology; ATTEND Surgery
PROC: HZ2ZZZZ Detoxification Services for Substance Abuse Treatment (ICD-10-PCS; principal; 2022-07-24)
DX: F10.230 Alcohol dependence with withdrawal, uncomplicated (principal); F03.A4 Unspecified dementia, mild, with anxiety; F17.210 Nicotine dependence, cigarettes, uncomplicated; F20.9 Schizophrenia, unspecified; F39 Unspecified mood [affective] disorder; E78.5 Hyperlipidemia, unspecified; I10 Essential (primary) hypertension; E11.9 Type 2 diabetes mellitus without complications; Z79.84 Long term (current) use of oral hypoglycemic drugs
CPT/HCPCS: 36415; 80053; 82962; 85027; 86780; C9803-CS; U0003; U0005